=== PATIENT | male | born 1955 | race Caucasian/White ===

== ENCOUNTER 2024-01-09 10:42 | Emergency (ER) | payer MEDICARE, BC ==
[~2024-01-09] VITALS: Ht 172.7 cm; Wt 68.2 kg
[2024-01-09 11:11] VITALS: BP 162/72; PULSE 76; RESP 16; TEMP 97.2; O2SAT 94
[2024-01-09] MEDS ORDERED: LIDOcaine/epinephrine/tetracaine TOPICAL sol 3 ML syringe TOP ONE (11:35)
[2024-01-09] MEDS: LIDOcaine 1% 30ml preserv. free vial IJ ONE (12:26)
[2024-01-09] MEDS: LIDOcaine/PRILOcaine 5gm cream TP ONE (12:26)
[2024-01-09] MEDS ORDERED: CEPH500C82 PO (12:48)
== END 2024-01-09 13:45 | disposition home or self-care (01) ==
LOC: ER 10:43
DX: S61.211A Laceration without foreign body of left index finger without damage to nail, initial encounter (principal); Z79.2 Long term (current) use of antibiotics; W26.8XXA Contact with other sharp object(s), not elsewhere classified, initial encounter; Y93.89 Activity, other specified; Y92.89 Other specified places as the place of occurrence of the external cause; Y99.0 Civilian activity done for income or pay
CPT/HCPCS: 12002; 73140; 99283; J2001; L3908; Z7610; J3490

== ENCOUNTER 2024-01-21 09:32 | Emergency (ER) | payer MEDICARE, BC ==
[~2024-01-21] VITALS: Ht 170.2 cm; Wt 68.0 kg
[2024-01-21 10:33] VITALS: BP 148/87; PULSE 70; RESP 18; TEMP 97.9; O2SAT 99
== END 2024-01-21 10:34 | disposition home or self-care (01) ==
LOC: ER 09:32
DX: S61.210D Laceration without foreign body of right index finger without damage to nail, subsequent encounter (principal); X58.XXXD Exposure to other specified factors, subsequent encounter
CPT/HCPCS: 99282